=== PATIENT | male | born 2000 | race Caucasian/White ===

== ENCOUNTER 2024-05-20 12:13 | Emergency (ER) | payer OTHER, SELFPAY ==
[2024-05-20 12:19] VITALS: BP 135/89; PULSE 89; RESP 18; TEMP 36.5; O2SAT 97; BMI 25.1
--- NOTE | 2024-05-20 12:33 | ED.GENADULT ---
HPI - General Adult General Chief complaint: Unspecified Complaint, Adult Stated complaint: Nail went into left index finger 2 days ago Time Seen by Provider: 05/20/24 12:17 History of Present Illness HPI narrative: Pt had a nail go through his left hand 2 days ago at work. Pt is here today for a tetanus shot. Last tdap 7 years ago in [place]. 23-year-old man presenting to the emergency department with concern of an injury to his left hand. A couple of days ago I believe from a nailing gun sustained a puncture to his left hand with a nail at the base of the index finger. Last Tdap was received in [place] 7 years ago. There is a question about having received 1 verses 2 injections in this regard. He has not noted any swelling to this wound nor having excessive pain. No purulent drainage. No loss of function. Was recommended to be evaluated here in the emergency department. Related Data Home Medications ?Medication ?Instructions ?Recorded ?Confirmed No Known Home Medications 05/20/24 05/20/24 Allergies Allergy/AdvReac Type Severity Reaction Status Date / Time No Known Drug Allergies Allergy Verified 05/20/24 12:27 Review of Systems Status of ROS: Reports: 6 or more systems reviewed and unremarkable except as noted in History and below [facility] Social History service: No Exam Narrative: Exam Narrative: Pleasant. NAD. Skin is warm and dry. Breathing easily. Heart in regular rate. Examination of the left hand in question shows noninflamed puncture wound at the base of the left index finger. Exit and entrance is visible. I do not see any swelling or erythema. Has good strength to flexion extension of the finger. Const: Vital Signs, click to edit/add: Vital Signs - 24 hr 05/20/24 12:19 Temperature 97.7 F Pulse Rate [Right Pulse Oximeter] 89 Respiratory Rate 18 Blood Pressure [Ri ght Upper Arm] 135/89 Pulse Oximetry 97 Oxygen Delivery Me thod Room Air Documenting provider has reviewed patient's vital signs: yes Course Vital Signs Vital signs: Initial Vital Signs Temperature 97.7 F 05/20/24 12:19 Temperature Source Temporal Artery Scan 05/20/24 12:19 Pulse Rate 89 05/20/24 12:19 Pulse Rhythm Regular 05/20/24 12:19 Respiratory Rate 18 05/20/24 12:19 Blood Pressure 135/89 05/20/24 12:19 Blood Pressure Mean 104 05/20/24 12:19 Blood Pressure Position Sitting 05/20/24 12:19 Pulse Oximetry 97 05/20/24 12:19 Oxygen Delivery Method Room Air 05/20/24 12:19 Vital Signs Temperature 97.7 F 05/20/24 12:19 Pulse Rate 89 05/20/24 12:19 Respiratory Rate 18 05/20/24 12:19 Blood Pressure 135/89 05/20/24 12:19 Pulse Oximetry 97 05/20/24 12:19 Oxygen Delivery Method Room Air 05/20/24 12:19 Temperature 97.7 F 05/20/24 12:19 Pulse Rate 89 05/20/24 12:19 Respiratory Rate 18 05/20/24 12:19 Blood Pressure 135/89 05/20/24 12:19 Pulse Oximetry 97 05/20/24 12:19 Oxygen Delivery Method Room Air 05/20/24 12:19 Medical Decision Making MDM Narrative Medical decision making narrative: Usually DTaP/Tdap is a single dose vaccine. He would still be on schedule for this. I do not see a reason to advance dosing at this point. I think he is pleased with that as he would rather avoid a shot. I do not think that any further treatment is necessary of his finger either. Would continue to monitor for indication of infection. Does not appear to have damaged significant structures. See patient discharge plan for further discussion Discharge Plan Discharge Clinical Impression: Puncture wound of finger Patient Disposition: Home, Self-Care Condition: Stable Additional Instructions: At this point watch for marked swelling, redness, heat, purulent drainage, significant increase in pain as reasons to be re-evaluated. DTaP is usually a 1 shot injection. From your reported last date, you would be due in 3 years. En mechelle punto, observe si hay sharifa hinchaz?n marcada, enrojecimiento, calor, secreci?n purulenta y un aumento significativo del dolor justine razones para volver a evaluar la situaci?n. La DTaP suele ser sharifa inyecci?n de sharifa david dosis. A partir de la ?ltima fecha informada, la fecha de parto deber?a ser dentro de 3 a?os. Prescriptions: No Action No Known Home Medications Stand Alone Forms: [employer] Info Instructions
== END 2024-05-20 13:13 | disposition home or self-care (01) ==
LOC: ED 13:08
PROVIDERS: Emergency Provider Family Medicine
DX: S61.231A Puncture wound without foreign body of left index finger without damage to nail, initial encounter (principal); W29.4XXA Contact with nail gun, initial encounter
CPT/HCPCS: 99282; 99283